=== PATIENT | female | born 2000 | race Caucasian/White ===

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

== ENCOUNTER 2018-04-27 09:44 | Emergency (ER) | payer BC, OTHER ==
[2018-04-27 11:44] VITALS: BP 117/66
[2018-04-27] MEDS ORDERED: Acetaminophen ADULT LIQ* 650 MG/20.3 ML UDC PO ONE (12:06)
--- NOTE | 2018-04-27 12:18 | UC ---
UC General HPI - HPI Summary HPI Summary: 3 DAY HX SINUS PRESSURE. LAST PM, DEVELOPED FEVER AND CHILLS WITH A TMAX OF 103 PLUS A SORE THROAT. - History of Current Complaint Chief Complaint: UCGeneralIllness Stated Complaint: FEVER,ACHEY,SORE THROAT Time Seen by Provider: 04/27/18 12:05 Hx Obtained From: Patient Hx Last Menstrual Period: 03/05/18 Onset/Duration: Gradual Onset Timing: Constant Pain Intensity: 8 Associated Signs & Symptoms: Positive: Fever, Headache. Negative: Cough, Chest Pain, Diarrhea, SOB, Vomiting - Allergy/Home Medications Allergies/Adverse Reactions: Allergies Allergy/AdvReac Type Severity Reaction Status Date / Time ibuprofen Allergy Hives Verified 08/18/17 17:48 PMH/Surg Hx/FS Hx/Imm Hx Previously Healthy: Yes - Surgical History Surgical History: Yes Surgery Procedure, Year, and Place: wisdom teeth - Family History Known Family History: Positive: Hypertension - Social History Occupation: Student Lives: Dormitory/Roommates Alcohol Use: None Substance Use Type: None Smoking Status (MU): Never Smoked Tobacco - Immunization History Vaccination Up to Date: Yes Review of Systems Constitutional: Fever, Chills Skin: Negative Eyes: Negative ENT: Sore Throat, Sinus Pain/Tenderness Respiratory: Negative Cardiovascular: Negative Gastrointestinal: Negative Genitourinary: Negative Motor: Negative Neurovascular: Negative Musculoskeletal: Negative Neurological: Negative Psychological: Negative Is Patient Immunocompromised?: No All Other Systems Reviewed And Are Negative: Yes Physical Exam Triage Information Reviewed: Yes Appearance: Ill-Appearing - BUT NON TOXIC Vital Signs: Initial Vital Signs Temp 100.4 F 04/27/18 11:39 Pulse 107 04/27/18 11:39 Resp 15 04/27/18 11:39 BP 117/66 04/27/18 11:39 Pulse Ox 100 04/27/18 11:39 Eyes: Positive: Conjunctiva Clear ENT: Positive: Pharyngeal erythema, TMs normal, Tonsillar swelling, Uvula midline. Negative: Nasal congestion, Nasal drainage, Tonsillar exudate, Trismus , Muffled voice, Hoarse voice, Sinus tenderness Neck: Positive: Supple, Nontender, Enlarged Nodes @ - PERITONSILAR Respiratory: Positive: Normal breath sounds, No respiratory distress Cardiovascular: Positive: RRR, No Murmur. Negative: Tachycardia Abdomen Description: Positive: Nontender, No Organomegaly, Soft Bowel Sounds: Positive: Present Musculoskeletal: Positive: ROM Intact Neurological: Positive: Alert Psychological: Positive: Age Appropriate Behavior Skin Exam: Normal Diagnostics - Laboratory Diagnostic Studies Completed/Ordered: RAPID STREP=POSITIVE. RAPID FLU=NEGATIVE Course/Dx - Course Course Of Treatment: + STREP AND NEGATIVE FLU. - Differential Dx - Multi-Symptom Provider Diagnoses: STREP THROAT Discharge - Sign-Out/Discharge Documenting (check all that apply): Patient Departure All imaging exams completed and their final reports reviewed: No Studies - Discharge Plan Condition: Stable Disposition: HOME Prescriptions: Amoxicillin PO (*) [Amoxicillin 500 MG CAP*] 500 mg PO Q12H 10 Days #20 cap Patient Education Materials: Strep Throat (DC) Referrals: [facility] [Outside] Additional Instructions: FOLLOW UP IN 5-7 DAYS IF NOT BETTER OR SOONER FOR ANY WORSENING. - Billing Disposition and Condition Condition: STABLE Disposition: Home
== END 2018-04-27 12:37 | disposition home or self-care (01) ==
LOC: UCCORT 09:44
DX: J02.0 Streptococcal pharyngitis (principal); Z88.9 Allergy status to unspecified drugs, medicaments and biological substances
CPT/HCPCS: 87651; 99212; A9270-GY; G0463

== ENCOUNTER 2019-03-07 13:48 | Emergency (ER) | payer BC ==
[2019-03-07 15:08] VITALS: BP 116/64
--- NOTE | 2019-03-07 15:10 | UC ---
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 She has a history of multiple sinus infections, has had sinus surgeries in the past. She denies any fever or chills. She does state that she is blowing out green coryza. - History of Current Complaint Chief Complaint: UCRespiratory Stated Complaint: SINUS CONCERN Time Seen by Provider: 03/07/19 15:05 Hx Obtained From: Patient Hx Last Menstrual Period: 02/14/19 ?: No Onset/Duration: Gradual Onset Severity: Mild Pain Intensity: 6 Cough: None Associated Signs & Symptoms: Positive: Sinus Discomfort, Nasal Discharge - Nasal drainage of green coryza. Related History: Prior ENT Surgery - Patient has had sinus surgery last year. - Allergies/Home Medications Allergies/Adverse Reactions: Allergies Allergy/AdvReac Type Severity Reaction Status Date / Time ibuprofen Allergy Hives Verified 03/07/19 15:04 Home Medications: Home Medications Norethindrone [Brittney] 1 tab QPM 03/07/19 [History Confirmed 03/07/19] PMH/Surg Hx/FS Hx/Imm Hx Previously Healthy: Yes - Surgical History Surgical History: Yes Surgery Procedure, Year, and Place: wisdom teeth. Tonsil. Sinus surgery, Jun 2017 - Family History Known Family History: Positive: Hypertension - Social History Occupation: Student Lives: Dormitory/Roommates Alcohol Use: None Substance Use Type: None Smoking Status (MU): Never Smoked Tobacco - Immunization History Most Recent Tetanus Shot: UTD Vaccination Up to Date: Yes Review of Systems All Other Systems Reviewed And Are Negative: Yes ENT: Positive: Nasal Discharge, Sinus Congestion, Sinus Pain/Tenderness Is Patient Immunocompromised?: No Physical Exam Triage Information Reviewed: Yes Appearance: Well-Appearing, No Pain Distress, Well-Nourished Vital Signs: Initial Vital Signs Temp 97.7 F 03/07/19 15:05 Pulse 70 03/07/19 15:05 Resp 16 03/07/19 15:05 BP 116/64 03/07/19 15:05 Pulse Ox 100 03/07/19 15:05 Vital Signs Reviewed: Yes Eyes: Positive: Conjunctiva Clear ENT: Positive: Hearing grossly normal, Pharynx normal, Nasal drainage - Clear nasal coryza, turbinates are not inflamed., TMs normal, Uvula midline Neck: Positive: Supple, Nontender, No Lymphadenopathy Respiratory: Positive: Lungs clear, Normal breath sounds, No respiratory distress, No accessory muscle use Cardiovascular: Positive: RRR, No Murmur, Pulses Normal, Brisk Capillary Refill Musculoskeletal Exam: Normal Neurological Exam: Normal Psychological Exam: Normal Skin Exam: Normal Throat Pain/Nasal Course/Dx - Course Course Of Treatment: Patient is comfortable here. We had a long discussion about viral versus bacterial. I believe at this time she has an upper respiratory illness however because of her past history of sinus problems I am going to give her a wait and see prescription for amoxicillin to start on Monday if she continues to have sinus pressure and green nasal coryza. The patient states she is willing to wait until Monday and just do [id number] medications for now. She can follow-up with her ear nose and throat physician as needed. - Differential Dx/Diagnosis Provider Diagnosis: URI (upper respiratory infection), History of sinus surgery Discharge ED - Sign-Out/Discharge Documenting (check all that apply): Patient Departure All imaging exams completed and their final reports reviewed: No Studies - Discharge Plan Condition: Good Disposition: HOME Prescriptions: Amoxicillin PO (*) [Amoxicillin 875 MG (*)] 875 mg PO BID 10 Days #20 tab Patient Education Materials: Sinusitis (ED), Upper Respiratory Infection (DC) Referrals: No Primary Care Phys,NOPCP [Primary Care Provider] - [facility]ILVERMAN [[facility], [facility], OTHER] - Additional Instructions: Increase fluids, if no improvement by Monday then you may start the antibiotic. [facility] the end of next week if no improvement. - Billing Disposition and Condition Condition: GOOD Disposition: Home
== END 2019-03-07 15:24 | disposition home or self-care (01) ==
LOC: UCCORT 13:48
DX: J06.9 Acute upper respiratory infection, unspecified (principal); Z98.890 Other specified postprocedural states; Z88.6 Allergy status to analgesic agent
CPT/HCPCS: 99212; G0463

== ENCOUNTER 2019-04-21 08:27 | Emergency (ER) | payer BC ==
[2019-04-21 08:37] VITALS: BP 109/57
--- NOTE | 2019-04-21 08:49 | UC ---
Complaint Female HPI - HPI Summary HPI Summary: Pt presents with c/o sudden onset of urinary urgency, frequency, and dysuria X 1 day. Pt sates that she felt chilled last evening but was unable to take her temperature. She is a student at [employer]. - History Of Current Complaint Chief Complaint: UCGU Stated Complaint: URINARY COMPLAINT Time Seen by Provider: 04/21/19 08:32 Hx Obtained From: Patient Hx Last Menstrual Period: 03/2019 ?: No Onset/Duration: Sudden Onset, Lasting Days, Still Present Timing: Constant Severity Initially: Mild Severity Currently: Moderate Pain Intensity: 9 Character: Dull, Burning Aggravating Factor(s): Urination Associated Signs And Symptoms: Positive: Negative - Risk Factors Ectopic Risk Factor: Negative Ovarian Torsion Risk Factor: Reproductive Age - Allergies/Home Medications Allergies/Adverse Reactions: Allergies Allergy/AdvReac Type Severity Reaction Status Date / Time ibuprofen Allergy Hives Verified 04/21/19 08:33 Home Medications: Home Medications Acetaminophen [Tylenol Extra Strength] 650 mg PO ONCE 04/21/19 [History Confirmed 04/21/19] Cranberry Fruit Extract [Cranberry] 1 dose PO ONCE 04/21/19 [History Confirmed 04/21/19] PMH/Surg Hx/FS Hx/Imm Hx Previously Healthy: Yes - Surgical History Surgical History: Yes Surgery Procedure, Year, and Place: wisdom teeth. Tonsil. Sinus surgery, Jun 2017 - Family History Known Family History: Positive: Hypertension - Social History Occupation: Student Lives: Dormitory/Roommates Alcohol Use: Occasionally Substance Use Type: None Smoking Status (MU): Never Smoked Tobacco Have You Smoked in the Last Year: No - Immunization History Most Recent Tetanus Shot: UTD Vaccination Up to Date: Yes Review of Systems All Other Systems Reviewed And Are Negative: Yes Constitutional: Positive: Chills, Fatigue Skin: Positive: Negative Eyes: Positive: Negative ENT: Positive: Negative Respiratory: Positive: Negative Cardiovascular: Positive: Negative Gastrointestinal: Positive: Negative Genitourinary: Positive: Dysuria, Frequency, Urgency Motor: Positive: Negative Neurovascular: Positive: Negative Musculoskeletal: Positive: Negative Neurological: Positive: Negative Psychological: Positive: Negative Is Patient Immunocompromised?: No Physical Exam Triage Information Reviewed: Yes Appearance: Well-Appearing Vital Signs: Initial Vital Signs Temp 98.5 F 04/21/19 08:34 Pulse 114 04/21/19 08:34 Resp 16 10/27/19 08:34 BP 109/57 04/21/19 08:34 Pulse Ox 100 04/21/19 08:34 Vital Signs Reviewed: Yes Eye Exam: Normal ENT: Positive: Hearing grossly normal Dental Exam: Normal Neck exam: Normal Respiratory Exam: Normal Respiratory: Positive: Normal breath sounds Cardiovascular Exam: Normal Abdominal Exam: Normal Abdomen Description: Positive: Nontender Musculoskeletal Exam: Normal Neurological Exam: Normal Psychological Exam: Normal Skin Exam: Normal Complaint Female Dx - Differential Dx/Diagnosis Differential Diagnosis/HQI/PQRI: Sexually Transmitted Disease, Urinary Tract Infection Provider Diagnosis: UTI (urinary tract infection) Discharge ED - Sign-Out/Discharge Documenting (check all that apply): Patient Departure All imaging exams completed and their final reports reviewed: No Studies - Discharge Plan Condition: Stable Disposition: HOME Prescriptions: Nitrofurantoin Monohyd/M-Cryst [Macrobid 100 mg Capsule] 100 mg PO Q12H #10 cap Phenazopyridine TAB* [Pyridium 100 mg TAB*] 100 mg PO Q8H #3 tab Patient Education Materials: Urinary Tract Infection in Women (ED) Referrals: [facility] [Outside] - If Needed No Primary Care Phys,NOPCP [Primary Care Provider] - - Billing Disposition and Condition Condition: STABLE Disposition: Home
== END 2019-04-21 08:58 | disposition home or self-care (01) ==
LOC: UCCORT 08:27
DX: N39.0 Urinary tract infection, site not specified (principal); R53.83 Other fatigue; Z88.8 Allergy status to other drugs, medicaments and biological substances
CPT/HCPCS: 81003; 84702; 87077; 87086; 87186; 99212; G0463